=== PATIENT | female | born 1960 | race Caucasian/White ===

== ENCOUNTER 2019-09-19 07:58 | Observation (INO) | payer OTHER ==
[~2019-09-19] VITALS: Ht 162.6 cm; Wt 97.7 kg
[~2019-09-19 07:58] MED LIST: ASPI1TAB31 PO
[2019-09-19] MEDS ORDERED: ONDANSETRON 2MG/ML, 2ML IVPush ONE (08:30)
[2019-09-19] MEDS ORDERED: SODIUM CHLORIDE FLUSH 10ML SYR IVF ONE (08:30)
[2019-09-19] MEDS ORDERED: HYDROmorphone 2 MG/ML, 1ML IVPush PRN (08:30)
--- NOTE | 2019-09-19 08:30 | NUR ---
PT IN ROOM, CRYING, STATING PAIN 10/10. BP ELEVATED - SEE CHARTING. PT IN GOWN, ABLE TO MOVE ALL EXTREMITIES, A&OX4. EKG DONE, LABS DONE, PT TO IMAGING.
[2019-09-19 08:58] LABS: BASOPHILS # (AUTO) 0.09 x10^3/uL (0-0.1); BASOPHILS % (AUTO) 1 % (0-1); EOSINOPHILS # (AUTO) 0.05 x10^3/uL (0-0.4); EOSINOPHILS % (AUTO) 1 % (1-7); LYMPHOCYTES # (AUTO) 1.84 x10^3/uL (1-3.4); LYMPHOCYTES % (AUTO) 27 % (22-44); MD NO; MEAN CORPUSCULAR HEMOGLOBIN 30.3 pg (27.0-34.8); MEAN CORPUSCULAR VOLUME 89.3 fL (80-100); MEAN PLATELET VOLUME 8.2 fL (7.4-10.4); MONOCYTES # (AUTO) 0.33 x10^3/uL (0.2-0.8); MONOCYTES % (AUTO) 5 % (2-9); NEUTROPHILS # (AUTO) 4.53 x10^3/uL (1.8-6.8); NEUTROPHILS % (AUTO) 66 % (42-75); PLATELET COUNT 352 x10^3/uL (130-400); RED BLOOD COUNT 4.95 x10^6/uL (3.82-5.3); RED CELL DISTRIBUTION WIDTH 12.8 % (9.6-15.2)
[2019-09-19 09:08] LABS: ALANINE AMINOTRANSFERASE 24 U/L (12-78); ALBUMIN 3.6 g/dL (3.4-5.0); ANION GAP 10 mmol/L (5-15); CALCIUM 9.5 mg/dL (8.5-10.1); CHLORIDE 99 mmol/L (98-107); CREATININE 1.25 mg/dL (0.55-1.02)
[2019-09-19 09:10] LABS: ALKALINE PHOSPHATASE 100 U/L (45-117); BILIRUBIN,TOTAL 0.6 mg/dL (0.2-1.0); TOTAL PROTEIN 7.9 g/dL (6.4-8.2)
[2019-09-19] MEDS ORDERED: HYDROmorphone 1 MG/ML, 1ML INJ ONE ×3 (09:25→15:06)
[2019-09-19] MEDS ORDERED: ONDANSETRON 2MG/ML, 2ML ONE (09:26)
--- NOTE | 2019-09-19 09:30 | NUR ---
PT BACK FROM IMAGING, STATED PAIN BUT NO LONGER CRYING. BP IMPROVED - SEE CHARTING.
[2019-09-19] MEDS ORDERED: SODIUM CHLORIDE 0.9% 1,000ML IVBOLUS ONE (10:00)
--- NOTE | 2019-09-19 10:20 | NUR ---
IV INSERTED, PATIENT TOLERATED WELL. ORDERED PAIN MEDS AND ANTINAUSEA ADMINISTERED, VSS, FLUIDS RUNNING. BEDRAILS UP, CALL LIGHT IN REACH.
--- NOTE | 2019-09-19 11:07 | NUR ---
PT RESTING IN BED, STATED 02/08 "BEARABLE PAIN." BP DOWN, HOLDING PAIN MED AT THIS TIME. PT TO IMAGING. FLUID BOLUS STILL INFUSING. WILL REASSESS VITALS AND PAIN UPON PT RETURN.
--- NOTE | 2019-09-19 11:43 | NUR ---
PT BACK FROM IMAGING. VITALS RECHECKED, PATIENT A&O AT BASELINE, RESTING IN BED.
[2019-09-19] MEDS ORDERED: HYDRO (12:03)
[2019-09-19] MEDS ORDERED: LISI2.5T PO (12:03)
[2019-09-19] MEDS ORDERED: HYDROCHLOROTHIAZIDE PO (12:04)
[2019-09-19 12:24] LABS: MICROSCOPIC NOT IND
[2019-09-19 12:26] LABS: CULTURE INDICATED? NO
[2019-09-19] MEDS ORDERED: KETOROLAC 30 MG/1 ML ONE (12:26)
[2019-09-19] MEDS ORDERED: KETOROLAC 30 MG/1 ML IVPush ONE (12:30)
[2019-09-19] MEDS ORDERED: DIAZEPAM 5 MG/ML, 2ML IV ONE (12:30)
--- NOTE | 2019-09-19 12:38 | NUR ---
BREAK RN: MD TO BEDSIDE TO UPDATE PT ON POC. VSS. PT MEDICATED PER MAR. CALL LIGHT WITHIN REACH
[2019-09-19] MEDS: SODIUM CHLORIDE 0.9% 1,000 ML IV SCH (13:20)
[2019-09-19] MEDS ORDERED: ONDANSETRON 2MG/ML, 2ML IVPush PRN (13:30)
[2019-09-19] MEDS ORDERED: OXYcodone IR 5MG TABLET PO PRN (13:30)
[2019-09-19] MEDS ORDERED: morphine SULFATE 10 MG/ML, 1ML IVPush PRN (13:30)
[2019-09-19] MEDS ORDERED: ACETAMINOPHEN 325 MG TABLET PO PRN (13:30)
[2019-09-19] MEDS ORDERED: ONDANSETRON ODT 4 MG PO PRN (13:30)
[2019-09-19] MEDS ORDERED: hydrALAzine 20 MG/ML, 1ML IVPush PRN (13:30)
[2019-09-19] MEDS ORDERED: LIDODERM 5% PATCH TD SCH (14:00)
[2019-09-19] MEDS ORDERED: LIDODERM 5% PATCH TD ONE (14:51)
[2019-09-19] MEDS: DULOXETINE 30 MG CAPSULE.DR PO SCH ×2 (15:17→20:22)
--- NOTE | 2019-09-19 15:23 | NUR ---
hydromorphone held due to pt's low current bp. report given to tonja dyer
[2019-09-19 16:26] VITALS: BP 91/64
[2019-09-19] MEDS ORDERED: ASA/APAP/ CAFFEINE TABLET PO PRN (16:30)
[2019-09-19 18:43] VITALS: BP 102/64
[2019-09-19] MEDS ORDERED: HEPARIN 5,000 UNITS/ML, 1ML SQ SCH (19:00)
[2019-09-19] MEDS: BACLOFEN 10 MG TABLET PO PRN (20:21)
[2019-09-19] MEDS ORDERED: GLUCAGON 1 MG IM PRN (20:30)
[2019-09-19] MEDS ORDERED: DEXTROSE 50%, 50ML SYRINGE IVPush PRN (20:30)
[2019-09-19] MEDS ORDERED: DEXTROSE 4 GM TAB.CHEW PO PRN (20:30)
[2019-09-19] MEDS ORDERED: INSULIN GLARGINE 100 UNITS/ML, PEN SQ-INSULIN SCH (21:00)
[2019-09-19] MEDS: SODIUM CHLORIDE FLUSH 10ML SYR IVF SCH (21:00)
[2019-09-19] MEDS: INSULIN LISPRO 100 UNITS/ML, PEN SQ-INSULIN SCH (21:44)
[2019-09-20] MEDS: SODIUM CHLORIDE 0.9% 1,000 ML IV SCH ×2 (00:53→08:43)
[2019-09-20 00:57] VITALS: BP 134/78
[2019-09-20 05:11] LABS: BASOPHILS # (AUTO) 0.03 x10^3/uL (0-0.1); BASOPHILS % (AUTO) 1 % (0-1); EOSINOPHILS # (AUTO) 0.06 x10^3/uL (0-0.4); EOSINOPHILS % (AUTO) 1 % (1-7); LYMPHOCYTES # (AUTO) 2.09 x10^3/uL (1-3.4); LYMPHOCYTES % (AUTO) 37 % (22-44); MD NO; MEAN CORPUSCULAR HEMOGLOBIN 30.4 pg (27.0-34.8); MEAN CORPUSCULAR HGB CONC 34.3 g/dL (32.4-35.8); MEAN CORPUSCULAR VOLUME 88.6 fL (80-100); MEAN PLATELET VOLUME 8.6 fL (7.4-10.4); MONOCYTES # (AUTO) 0.34 x10^3/uL (0.2-0.8); MONOCYTES % (AUTO) 6 % (2-9); NEUTROPHILS # (AUTO) 3.15 x10^3/uL (1.8-6.8); NEUTROPHILS % (AUTO) 56 % (42-75); PLATELET COUNT 282 x10^3/uL (130-400); RED BLOOD COUNT 4.28 x10^6/uL (3.82-5.3); RED CELL DISTRIBUTION WIDTH 12.8 % (9.6-15.2)
[2019-09-20 05:22] LABS: ANION GAP 5 mmol/L (5-15); CALCIUM 8.6 mg/dL (8.5-10.1); CHLORIDE 105 mmol/L (98-107)
[2019-09-20 05:23] LABS: CREATININE 1.14 mg/dL (0.55-1.02)
[2019-09-20] MEDS: INSULIN LISPRO 100 UNITS/ML, PEN SQ-INSULIN SCH ×2 (08:42→11:58)
[2019-09-20] MEDS: DULOXETINE 30 MG CAPSULE.DR PO SCH (08:43)
[2019-09-20] MEDS: SODIUM CHLORIDE FLUSH 10ML SYR IVF SCH (08:43)
[2019-09-20] MEDS ORDERED: INSULIN GLARGINE 100 UNITS/ML, PEN SQ-INSULIN SCH (09:00)
[2019-09-20 09:06] VITALS: BP 116/81
[2019-09-20] MEDS ORDERED: GLIP5TAB10 PO (09:11)
[2019-09-20] MEDS ORDERED: BACL-19 PO (09:11)
[2019-09-20] MEDS ORDERED: DULO30CA2 PO (09:11)
[2019-09-20] MEDS ORDERED: INSU100I13 SQ-INSULIN (09:11)
[2019-09-20] MEDS: BACLOFEN 10 MG TABLET PO PRN (11:14)
[2019-09-20 11:18] VITALS: BP 113/80
[2019-09-20] MEDS ORDERED: FLUCONAZOLE 100 MG TABLET ONE (12:54)
[2019-09-20] MEDS ORDERED: FLUCONAZOLE 50 MG TABLET PO ONE (13:00)
== END 2019-09-20 13:35 | disposition home or self-care (01) ==
LOC: ED 11:37 → SUATTDRO 13:13 → EDIP 13:20 → INTOOBSV 13:20 → 3N 14:20
PROVIDERS: ADMIT Hospitalist; ATTEND Hospitalist
DX: M54.5 Low back pain (principal); M54.16 Radiculopathy, lumbar region; R20.0 Anesthesia of skin; I10 Essential (primary) hypertension; N17.0 Acute kidney failure with tubular necrosis; E66.9 Obesity, unspecified; B37.3 Candidiasis of vulva and vagina; E11.65 Type 2 diabetes mellitus with hyperglycemia; G43.909 Migraine, unspecified, not intractable, without status migrainosus; Z90.710 Acquired absence of both cervix and uterus
CPT/HCPCS: 36415; 71045; 72110; 72148; 74176; 80048; 80053; 81003; 82962; 83036; 83690; 85025; 93005; 96361; 96372; 96374; 96375; 97162; 99285; G0378; J1170; J1815; J1885; J2405; J7030